=== PATIENT | male | born 1960 | race African-American/Black ===

== ENCOUNTER 2021-11-08 08:56 | Emergency (ER) | payer MEDICAID ==
[~2021-11-08] VITALS: Ht 172.7 cm; Wt 72.0 kg
[2021-11-08 08:59] VITALS: BP 163/85
[2021-11-08] MEDS ORDERED: IV NORMAL SALINE 1,000ML 1,000 ML IV SCH (09:30)
--- NOTE | 2021-11-08 09:40 | PHYS DOC ---
Past History Additional Past Medical Histor: Colitis, Hep C, enlarged prostate Past Surgical History: Other Adult General Chief Complaint Chief Complaint: NAUSEA/VOMITING/DIARRHEA HPI HPI Patient is a 61 year old male who presents with complaint of nausea and abdominal pain. Patient states that his symptoms started earlier this morning at 0400. States he started having severe nausea but denies any vomiting. He states that he took Zofran at home which helped improve his nausea symptoms. States however that he is having continued lower abdominal pain. States that he had similar pain 1 year ago and was diagnosed with colitis at that time. Patient has multiple comorbidities including diabetes mellitus, hep C, and HIV. Denies fever or diarrhea. States that he has had similar pains in the past as well that did not reveal evidence of colitis but did show signs of constipation. He was last seen in April 2021 and diagnosed with constipation at that time. States that the pain is sharp and severe. Review of Systems Review of Systems Constitutional: Denies fever or chills [] Eyes: Denies change in visual acuity, redness, or eye pain [] HENT: Denies nasal congestion or sore throat [] Respiratory: Denies cough or shortness of breath [] Cardiovascular: Denies chest pain or edema [] GI: Abdominal pain, nausea, denies vomiting, bloody stools or diarrhea [] : Denies dysuria or hematuria [] Musculoskeletal: Denies back pain or joint pain [] Integument: Denies rash or skin lesions [] Neurologic: Denies headache, focal weakness or sensory changes [] All other systems were reviewed and found to be within normal limits, except as documented in this note. Current Medications Current Medications Current Medications Medications (Trade) Dose Ordered Sig/Penny Start Time Stop Time Status Last Admin Dose Admin Fentanyl Citrate (Fentanyl 2ml Vial) 50 mcg PRN Q15MIN PRN 11/08/21 09:30 11/09/21 09:29 Ondansetron HCl (Zofran) 4 mg 1X ONCE 11/08/21 09:45 11/08/21 09:46 Sodium Chloride 1,000 ml @ 1,000 mls/hr Q1H 11/08/21 09:30 11/08/21 10:29 Allergies Allergies Allergies Coded Allergies Type Severity Reaction Last Updated Verified No Known Drug Allergies 11/08/21 No Physical Exam Physical Exam Constitutional: Alert, afebrile, appears in moderate discomfort. [] HENT: Normocephalic, atraumatic, bilateral external ears normal, oropharynx moist, no oral exudates, nose normal. [] Eyes: PERRLA, EOMI, conjunctiva normal, no discharge. [] Neck: Normal range of motion, no tenderness, supple, no stridor. [] Cardiovascular:Heart rate regular rhythm, no murmur [] Lungs & Thorax: Bilateral breath sounds clear to auscultation [] Abdomen: Bowel sounds normal, soft, suprapubic tenderness to palpation, no m asses, no pulsatile masses. [] Skin: Warm, dry, no erythema, no rash. [] Back: No tenderness, no CVA tenderness. [] Extremities: No tenderness, no cyanosis, no clubbing, ROM intact, no edema. [] Neurologic: Alert and oriented X 3, normal motor function, normal sensory function, no focal deficits noted. [] Current Patient Data Vital Signs Vital Signs Date Time Temp Pulse Resp B/P (MAP) Pulse Ox O2 Delivery O2 Flow Rate FiO2 11/08/21 08:59 70 18 163/85 (111) 100 Room Air Lab Results Laboratory Tests Test 11/08/21 09:58 11/08/21 10:29 11/08/21 11:00 White Blood Count 7.0 x10^3/uL Red Blood Count 4.42 x10^6/uL Hemoglobin 14.4 g/dL Hematocrit 42.2 % Mean Corpuscular Volume 96 fL Mean Corpuscular Hemoglobin 33 pg Mean Corpuscular Hemoglobin Concent 34 g/dL Red Cell Distribution Width 14.7 % Platelet Count 204 x10^3/uL Neutrophils (%) (Auto) 68 % Lymphocytes (%) (Auto) 25 % Monocytes (%) (Auto) 6 % Eosinophils (%) (Auto) 0 % Basophils (%) (Auto) 1 % Neutrophils # (Auto) 4.8 x10^3uL Lymphocytes # (Auto) 1.7 x10^3/uL Monocytes # (Auto) 0.4 x10^3/uL Eosinophils # (Auto) 0.0 x10^3/uL Basophils # (Auto) 0.1 x10^3/uL Sodium Level 137 mmol/L Potassium Level 4.0 mmol/L Chloride Level 102 mmol/L Carbon Dioxide Level 28 mmol/L Anion Gap 7 Blood Urea Nitrogen 13 mg/dL Creatinine 1.0 mg/dL Estimated GFR (Cockcroft-Gault) 91.9 BUN/Creatinine Ratio 13 Glucose Level 209 mg/dL Calcium Level 9.2 mg/dL Total Bilirubin 0.4 mg/dL Aspartate Amino Transf (AST/SGOT) 20 U/L Alanine Aminotransferase (ALT/SGPT) 31 U/L Alkaline Phosphatase 84 U/L Total Protein 7.5 g/dL Albumin 3.6 g/dL Albumin/Globulin Ratio 0.9 Lipase 140 U/L Glucose (Fingerstick) 216 mg/dL Urine Collection Type Unknown Urine Color Yellow Urine Clarity Clear Urine pH 7.0 Urine Specific [place] 1.025 Urine Protein 30 mg/dl Urine Glucose (UA) 250 mg/dL Urine Ketones (Stick) Neg mg/dL Urine Blood Neg Urine Nitrite Neg Urine Bilirubin Neg Urine Urobilinogen Dipstick 0.2 mg/dL Urine Leukocyte Esterase Neg Urine RBC 3-5 /HPF Urine WBC 5-10 /HPF Urine Squamous Epithelial Cells Few /LPF Urine Bacteria 0 /HPF Current Medications Medications (Trade) Dose Ordered Sig/Penny Route PRN Reason Start Time Stop Time Status Last Admin Dose Admin Fentanyl Citrate (Fentanyl 2ml Vial) 50 mcg PRN Q15MIN PRN IV PAIN GREATER THAN 3/10 11/08/21 09:30 11/09/21 09:29 Sodium Chloride 1,000 ml @ 1,000 mls/hr Q1H IV 11/08/21 09:30 11/08/21 10:29 DC 11/08/21 10:20 Ondansetron HCl (Zofran) 4 mg 1X ONCE IVP 11/08/21 09:45 11/08/21 09:46 DC 11/08/21 10:20 Insulin Human Isoph/Insulin Regular (HumuLIN 70-30 VIAL) 22 units 1X STAT SQ 11/08/21 10:30 11/08/21 10:39 DC 11/08/21 10:57 Metoclopramide HCl (Reglan Vial) 5 mg 1X ONCE IVP 11/08/21 11:30 11/08/21 11:31 DC 11/08/21 11:30 Acetaminophen/ Hydrocodone Bitart (Lortab 5/325) 1 tab 1X ONCE PO 11/08/21 12:00 11/08/21 12:01 DC 11/08/21 12:00 EKG EKG Not performed [] Radiology/Procedures Radiology/Procedures CT of the abdomen and pelvis without contrast interpreted by the radiologist: Unremarkable noncontrast CT of the abdomen and pelvis. [] Heart Score C/O Chest Pain: No Risk Factors: Risk Factors: DM, Current or recent (<one month) smoker, HTN, HLP, family history of CAD, obesity. Risk Scores: Risk Factors: DM, Current or recent (<one month) smoker, HTN, HLP, family history of CAD, obesity. Course & Med Decision Making Course & Med Decision Making Pertinent Labs and Imaging studies reviewed. (See chart for details) The patient was given IV fluids and Zofran in the emergency department was offered IV fentanyl however patient declined. He requested oral pain medication instead. This was held until CT imaging resulted which showed no acute surgical process. Patient's condition appears stable at this time and patient is appropriate for outpatient discharge. Patient does display some stool retention on imaging that could be consistent with constipation which may be affecting the patient's pain symptoms at this time. Prescribed Bentyl, Zofran, and MiraLAX for outpatient treatment. Recommend close follow-up with primary doctor in the next 3 days for reevaluation and return to the emergency department for any worsening symptoms. Patient voiced understanding and in agreement with treatment plan. [] Dragon Disclaimer Dragon Disclaimer This electronic medical record was generated, in whole or in part, using a voice recognition dictation system. Departure Departure: Impression: Primary Impression: Abdominal pain Additional Impression: Nausea & vomiting Disposition: 01 HOME / SELF CARE / HOMELESS Condition: STABLE Referrals: JUAN ZAMUDIO MD (PCP) Patient Instructions: Abdominal Pain, Constipation, Adult, Nausea and Vomiting Additional Instructions: Follow-up with your primary care provider in the next 3 to 5 days for reev aluation. Return to the emergency department for any worsening symptoms. Scripts Ondansetron (ONDANSETRON ODT) 4 Mg Tab.rapdis 1 TAB PO Q8HRS PRN for NAUSEA/VOMITING, #16 TAB Prov: RAND AVILA MD 11/08/21 Dicyclomine Hcl (DICYCLOMINE HCL) 20 Mg Tablet 1 TAB PO QID, #30 TAB Prov: RAND AVILA MD 11/08/21 Polyethylene Glycol 3350 (MIRALAX) 17 Gm Powd.pack 1 PACKET PO DAILY for constipation for 2 Days, #2 PACKET 0 Refills dissolve in water Prov: RAND AVILA MD 11/08/21 Problem Qualifiers Primary Impression: Abdominal pain Abdominal location: lower abdomen, unspecified Qualified Codes: R10.30 - Lower abdominal pain, unspecified Additional Impression: Nausea & vomiting Vomiting type: unspecified Qualified Codes: R11.2 - Nausea with vomiting, unspecified RAND AVILA MD November 08, 2021 09:40
[2021-11-08] MEDS ORDERED: ONDANSETRON PF 4 MG/2 ML VIAL. IVP ONE (09:45)
[2021-11-08 10:12] LABS: BASO # 0.1 x10^3/uL (0.0-0.2); BASO % 1 % (0-3); EOS % 0 % (0-3); HEMATOCRIT 42.2 % (39.0-53.0); HEMOGLOBIN 14.4 g/dL (13.0-17.5); LYMPH # 1.7 x10^3/uL (1.0-4.8); LYMPH % 25 % (24-48); MEAN CORPUSCULAR HEMOGLOBIN 33 pg (25-35); MEAN CORPUSCULAR HGB CONC 34 g/dL (31-37); MEAN CORPUSCULAR VOLUME 96 fL (79-100); MONO # 0.4 x10^3/uL (0.0-1.1); MONO % 6 % (0-9); NEUT # 4.8 x10^3uL (1.8-7.7); NEUT % 68 % (31-73); PLATELET COUNT 204 x10^3/uL (140-400); RED BLOOD COUNT 4.42 x10^6/uL (4.30-5.70); RED CELL DISTRIBUTION WIDTH 14.7 % (11.5-14.5)
[2021-11-08 10:21] LABS: CALCIUM 9.2 mg/dL (8.5-10.1); GFR 91.9
[2021-11-08 10:27] LABS: ALBUMIN 3.6 g/dL (3.4-5.0); ALBUMIN/GLOBULIN RATIO 0.9 (1.0-1.7); TOTAL BILIRUBIN 0.4 mg/dL (0.2-1.0); TOTAL PROTEIN 7.5 g/dL (6.4-8.2)
[2021-11-08] MEDS ORDERED: INSULIN NPH/REG HUM 70/30 300 UNITS/3 ML VIAL. SQ STA (10:30)
[2021-11-08] MEDS ORDERED: METOCLOPRAMIDE HCL 10 MG/2 ML VIAL. IVP ONE (11:30)
[2021-11-08 11:54] LABS: BACTERIA,URINE 0 /HPF (0-FEW); CLARITY,URINE CLEAR; COLOR,URINE YELLOW; GLUCOSE,URINE 250 mg/dL (NEG); NITRITE,URINE NEG (NEG); SQUAMOUS EPITHELIAL CELL,UR FEW /LPF; UROBILINOGEN,URINE 0.2 mg/dL (0.2 mg/dL)
[2021-11-08] MEDS ORDERED: HYDROcodone/APAP 5/325MG 1 TAB TABLET PO ONE (12:00)
[2021-11-08] MEDS ORDERED: DICY20TA PO (12:38)
[2021-11-08] MEDS ORDERED: ONDA4TAB12 PO (12:38)
[2021-11-08] MEDS ORDERED: POLY17PO5 PO (12:38)
--- NOTE | 2021-11-08 15:59 | RAD ---
Axial noncontrast CT imaging of the abdomen pelvis was obtained. Coronal and sagittal reformats are a vailable. No oral contrast was administered. COMPARISON: None. INDICATION: Lower abdominal pain, history of colitis. FINDINGS: Lung bases are clear. The heart is not enlarged. Limited evaluation of the solid organs without intravenous contrast. The noncontrasted liver, gallbla dder, spleen, adrenals, kidneys and pancreas are grossly unremarkable. The stomach, small and large bowel are nondistended. No evidence pathologic wall thickening. There is pancolonic diverticulosis. No evidence of diverticulitis. The appendix is visualized and is unremark able in appearance. Prostate gland is enlarged. Urinary bladder is mildly distended. A few small foci of air identified in the urinary bladder likely due to recent catheterization. No free air-fluid. Ra diologically significant retroperitoneal or mesenteric lymphadenopathy is identified. Bony structures are unremarkable in appearance. There is calcific atherosclerotic disease of the abdominal aorta. [place] structures show age-appropriate degenerative change. IMPRESSION: 1. Unremarkable noncontrast CT of the abdomen pelvis. 2. Air is seen in the bladder, possibly from prior catheterization. Correlate clinically. 3. Pancolonic diverticulosis no diverticulitis. Exposure: One or more of the following individualized dose reduction techniques were utilized for thi s examination: 1. Automated exposure control 2. Adjustment of the mA and/or kV according to patient size 3. Use of iterative reconstruction technique Electronically signed by: Mu Estrada MD (11/08/2021 10:42 AM) [email or web address]
== END 2021-11-08 12:50 | disposition home or self-care (01) ==
LOC: ER 08:56
DX: R11.2 Nausea with vomiting, unspecified (principal); R10.30 Lower abdominal pain, unspecified
CPT/HCPCS: 36415; 74176; 80053; 81001; 82947; 83690; 85025; 87086; 96361; 96372; 96374; 96375; 99284; J1815; J2405; J2765; J7030